=== PATIENT | female | born 1955 | race Caucasian/White ===

== ENCOUNTER 2016-07-07 15:32 | Outpatient (CLI) | payer OTHER ==
[2016-07-07 16:02] LABS: Cardiac Risk 2.9 (Less than 4.5)
== END 2016-07-07 15:33 ==
LOC: NAVSJIPCSP 15:32
PROVIDERS: ATTEND Internal Medicine
DX: E78.5 Hyperlipidemia, unspecified (principal)
CPT/HCPCS: 36415; 80061

== ENCOUNTER 2016-10-14 10:26 | Outpatient (CLI) | payer OTHER ==
[2016-10-14 12:23] LABS: Cardiac Risk 2.8 (Less than 4.5)
== END 2016-10-14 10:27 | disposition home or self-care (01) ==
LOC: NAVSJIPCSP 10:26
PROVIDERS: ATTEND Internal Medicine
DX: E78.5 Hyperlipidemia, unspecified (principal)
CPT/HCPCS: 36415; 80061